=== PATIENT | male | born 1945 | race Caucasian/White ===

== ENCOUNTER 2017-06-07 03:45 | Emergency (ER) | payer MEDICARE ==
[~2017-06-07] VITALS: Ht 175.3 cm; Wt 74.8 kg
[~2017-06-07 03:45] MED LIST: ALPR1TAB7 PO; AMLO10TA2 PO; PANT40TA2 PO; SIMV20TA2 PO
[2017-06-07 03:50] VITALS: BP 168/85
--- NOTE | 2017-06-07 07:15 | NUR ---
AAOX3, C/O ABDOMINAL PAIN, HX OF CHRONIC PANCREATITIS. RR IS EVEN AND UNLABORED WITH NAD NOTED. SKIN IS WARM AND DRY. DR RIOS AT FOR IV INSERTION.
[2017-06-07] MEDS ORDERED: ONDANSETRON HCL/PF 4 MG/2 ML VIAL IVP ONE (07:30)
[2017-06-07] MEDS ORDERED: MORPHINE SULFATE INJ 2 MG/ML DISP.SYRIN IV ONE (07:30)
[2017-06-07] MEDS ORDERED: ONDANSETRON HCL/PF 4 MG/2 ML VIAL ONE (07:41)
[2017-06-07] MEDS ORDERED: MORPHINE SULFATE INJ 4 MG/ML DISP.SYRIN ONE (07:41)
[2017-06-07 07:44] LABS: APPEARANCE,URINE CLEAR (CLEAR); BILIRUBIN,URINE NEGATIVE (NEGATIVE); BLOOD, URINE NEGATIVE Ery/uL (NEGATIVE); COLOR,URINE YELLOW (YELLOW); KETONES,URINE NEGATIVE (NEGATIVE); LEUKOCYTE ESTERASE ,URINE NEGATIVE (NEGATIVE); NITRITE, URINE NEGATIVE (NEGATIVE); PROTEIN,URINE NEGATIVE (NEGATIVE); UGLUCOSE NEGATIVE (NEGATIVE); UROBILINOGEN,URINE 0.2 EU/dL (0.2)
--- NOTE | 2017-06-07 07:54 | NUR ---
XRAY IN PROGRESS AT BS
[2017-06-07 07:55] LABS: CALCIUM, SERUM 10.5 mg/dL (8.5-10.1); CARBON DIOXIDE 28 mmol/L (21-32); CHLORIDE 102 mmol/L (98-107); CREATININE 1.3 mg/dL (0.6-1.3); GLUCOSE 109 mg/dL (74-106); POTASSIUM 3.8 mmol/L (3.5-5.1); SODIUM SERUM 140 mmol/L (136-145); UREA NITROGEN, BLOOD 23 mg/dL (7-18)
[2017-06-07 08:03] LABS: ALANINE AMINOTRANSFERASE 18 U/L (12-78); ALBUMIN 3.6 g/dL (3.4-5.0); ALKALINE PHOSPHATASE 34 U/L (46-116); ASPARTATE AMINOTRANSFERASE 23 U/L (15-37); BASOPHILS % (AUTO) 0.2 % (0.0-2.0); BILIRUBIN,DIRECT 0.1 mg/dL (0.0-0.2); BILIRUBIN,TOTAL 0.3 mg/dL (0.2-1.0); EOSINOPHILS # (AUTO) 0.1 /CMM (0.0-0.7); EOSINOPHILS % (AUTO) 1.5 % (0.0-6.0); HEMATOCRIT 38 % (39-51); HEMOGLOBIN 12.9 g/dL (13.5-17.5); LIPASE 340 U/L (73-393); LYMPHOCYTES # (AUTO) 1.3 /CMM (0.8-4.8); LYMPHOCYTES % (AUTO) 15.5 % (20.0-44.0); MEAN CORPUSCULAR HEMOGLOBIN 31 PG (26.0-33.0); MEAN CORPUSCULAR HGB CONC 34 g/dl (31.0-36.0); MEAN CORPUSCULAR VOLUME 91 fL (80-96); MONOCYTES # (AUTO) 0.7 /CMM (0.1-1.30); NEUTROPHILS # (AUTO) 6.2 /CMM (1.8-8.9); NEUTROPHILS % (AUTO) 74.8 % (43.0-81.0); PLATELET COUNT (AUTO) 202 /CMM (150-450); TOTAL PROTEIN, SERUM 7.2 g/dL (6.4-8.2); WHITE BLOOD COUNT (AUTO) 8.3 K/uL (4.3-11.0)
[2017-06-07 08:08] LABS: INR 1.01 (0.87-1.13)
--- NOTE | 2017-06-07 08:27 | NUR ---
[employer] INSPECTOR AT
[2017-06-07 08:29] LABS: TROPONIN I < 0.017 ng/mL (0.00-0.056)
[2017-06-07] MEDS ORDERED: MAG HYDROX/AL HYDROX/SIMETH 30 ML UDC PO ONE (09:30)
[2017-06-07] MEDS ORDERED: LIDOCAINE VISCOUS 2% UD 15 ML UDC MM ONE (09:30)
[2017-06-07] MEDS ORDERED: MAG HYDROX/AL HYDROX/SIMETH 30 ML UDC ONE (09:51)
[2017-06-07] MEDS ORDERED: LIDOCAINE VISCOUS 2% UD 15 ML UDC ONE (09:51)
== END 2017-06-07 10:51 | disposition home or self-care (01) ==
LOC: ER 03:47
DX: R10.13 Epigastric pain (principal); N28.1 Cyst of kidney, acquired; E78.00 Pure hypercholesterolemia, unspecified; Z88.8 Allergy status to other drugs, medicaments and biological substances
CPT/HCPCS: 36415; 36569; 71045; 76700; 80048; 80076; 81001; 83690; 84484; 85025; 85730; 96374; 96375; 99285; A4606; J2270; J2405; 81000-TC; Z7610